=== PATIENT | female | born 1995 | race Caucasian/White ===

== ENCOUNTER 2019-06-20 18:50 | Emergency (ER) | payer BC ==
[~2019-06-20] VITALS: Ht 170.2 cm; Wt 59.1 kg
[~2019-06-20 18:50] MED LIST: ZYRTEC5 MG PO
[2019-06-20 19:04] VITALS: BP 126/91; TEMP 98.1
[2019-06-20 20:38] VITALS: PULSE 80
== END 2019-06-20 20:38 | disposition home or self-care (01) ==
LOC: COL.ER 18:50
DX: S93.401A Sprain of unspecified ligament of right ankle, initial encounter (principal); S96.911A Strain of unspecified muscle and tendon at ankle and foot level, right foot, initial encounter; X50.1XXA Overexertion from prolonged static or awkward postures, initial encounter

== ENCOUNTER 2019-07-05 10:30 | Outpatient (RCR) | payer BC | END 2019-09-17 | disposition home or self-care (01) | LOC: WSOT | DX: R53.1 Weakness (principal) ==